=== PATIENT | female | born 1995 ===

== ENCOUNTER 2016-07-09 16:06 | Emergency (ER) | payer SELFPAY ==
[~2016-07-09] VITALS: Ht 157.5 cm; Wt 83.0 kg
--- OUTSIDE RECORDS SUMMARY | 2016-07-09 16:10 | XMS REPORT | Summary of Care ---
Author Author Linda Aguayo M.D. Organization Unknown Address [address], [place] [id number] Phone Unavailable Care Team Providers Care Cheese Wrapper Name Role Phone Sam Aguayo M.D. Unavailable Unavailable Parker Ferraro PP Unavailable Unavailable Unavailable Functional Status Functional Status Health Issues Name Dates Details Functional status health issues are not documented Status: Cognitive Status Health Issues Name Dates Details Cognitive status health issues are not documented Status: Problems Name Dates Details Cellulitis, finger (681.00, L03.019) Status: Active Encounter for routine checking of intrauterine contraceptive device (V25.42, Z30.431) Status: Active Encounter for IUD insertion (V25.11, Z30.430) Status: Active Vaginal Discharge (623.5, N89.8) Status: Active Malpositioned intrauterine device (IUD), initial encounter (996.76, T83.89XA) Status: Active Pelvic pain in female (625.9, R10.2) Status: Active Encounter for gynecological examination with abnormal finding (V72.31, Z01.411 ) Status: Active BV (bacterial vaginosis) (616.10, N76.0) Status: Active Medications Name Dates Details Mirena 20 MCG/24HR Intrauterine Intrauterine Device inserted by physician Quantity: 1 Refills: 0 Linda Aguayo M.D. Started 17-May-2015 Ended 17-May-2020 ActiveMetroNIDAZOLE 0.75 % Vaginal Gel INSERT 1 APPLICATORFUL INTRAVAGINALLY AT BEDTIME NIGHTLY FOR FIVE NIGHTS. Quantity: 1 Refills: 0 Linda Aguayo M.D. Started 18-May-2015 [id number] GM Tube Allergies and Adverse Reactions Name Dates Details No Known Drug Allergies Status: Active Past Medical History Name Dates Details Encounter for gynecological examination with abnormal finding (V72.31, Z01.411 ) Status: Active Malpositioned intrauterine device (IUD), initial encounter (996.76, T83.89XA) Status: Active Vaginal Discharge (623.5, N89.8) Status: Active History of Back Pain Status: Resolved History of Benign neoplasm of skin of scalp (216.4, D23.4) Status: Resolved History of Benign neoplasm of skin of scalp (216.4, D23.4) Status: Resolved History of Large Lump Under The Skin Status: Resolved History of streptococcal pharyngitis (V12.09, Z87.09) Status: Resolved Procedures Procedure Dates Details Procedures not documented Immunization Name Dates Details Gardasil Intramuscular Suspension Lot #: [id number] Administered on:29-Nov-2013 Family History Grandparent Name Dates Details Family history of diabetes mellitus (V18.0, Z83.3) Status: Active Family history of High cholesterol (272.0, E78.0) Status: Active Grandmother Name Dates Details Family history of kidney disease (V18.69, Z84.1) Status: Active Family history of glaucoma (V19.11, Z83.511) Status: Active Family history of tuberculosis (V18.8, Z83.1) Status: Active uncle Name Dates Details Family history of diabetes mellitus (V18.0, Z83.3) Status: Active Family history of glaucoma (V19.11, Z83.511) Status: Active Mother Name Dates Details Family history of diabetes mellitus (V18.0, Z83.3) Status: Active Father Name Dates Details Family history of High cholesterol (272.0, E78.0) Status: Active Social History Name Dates Details Smoking StatusCurrent every day smoker Vital Signs Date Test Result Details 17-May-2015 13:22 BP Systolic 112 mm[Hg] Status: BP Diastolic 60 mm[Hg] Status: Height 62 in Status: Weight 176 lb Status: Body Mass Index Calculated 32.19 kg/m2 Status: Body Surface Area Calculated 1.81 m2 Status: 08-May-2015 16:46 BP Systolic 110 mm[Hg] Status: BP Diastolic 68 mm[Hg] Status: Temperature 98.6 f Status: Heart Rate 90 /min Status: O2 SAT 98 % Status: Results Date Description Value Details 17-May-2015 15:14 CBC w/ Auto Diff 7150 WBC 9.2 K/uL (Better) Range: 4.5-11.0 RBC 4.92 mil/uL (Better) Range: 3.60-5.00 HGB 14.9 g/dL (Better) Range: 12.0-16.0 HCT 45.6 % (Better) Range: 36.0-48.0 MCV 92.6 fL (Better) Range: 80.0-99.0 MCH 30.2 pg (Better) Range: 27.3-32.5 MCHC 32.7 % (Better) Range: 32.0-36.0 RDW 12.4 % (Better) Range: 11.6-14.8 PLATELETS 379 K/uL (Better) Range: 150-400 MPV 7.4 fL (Better) Range: 6.0-11.0 %NEUTRO 64.2 % (Better) Range: 37.0-80.0 %LYMPHS 26.6 % (Better) Range: 13.0-50.0 %MONO 5.3 % (Better) Range: 0.0-12.0 %EOS 1.4 % (Better) Range: 0.0-7.0 %BASO 0.6 % (Better) Range: 0.0-2.5 %TACOS 2.0 % (Better) Range: 0.0-5.0 NEUTRO 5.9 K/uL (Better) Range: 2.0-6.9 LYMPHS 2.5 K/uL (Better) Range: 0.6-3.4 MONOS 0.5 K/uL (Better) Range: 0.0-0.9 EOS 0.1 K/uL (Better) Range: 0.0-0.7 BASO 0.1 K/uL (Better) Range: 0.0-0.2 15:54 ERYTHROCYTE SED RATE 7800 ERYTHROCYTE SED RATE 7 mm/60 min. (Better) Range: 0-20 16:09 OB Dept- Ultrasound Endovag Pelvic Sonogram Comments: Exam Date: 13:37Dictation Date: 05/17/2015 16:09 XOB EV SONO (Better) 17:22 Vaginitis Panel ( Trichomonas, Gardnerella, Scarlet sp.) 5615 T. VAGINALIS PROBE Negative (Better) Range: Negative GARDNERELLA PROBE POSITIVE (Abnormal) Range: Negative SCARLET SP. PROBE Negative (Better) Range: Negative 18-May-2015 14:14 Chlamydia/GC TMA Assay [id number] Comments: [facility] performed at: [facility], [address] [facility], [place], [address], [place] [employer] Lieutenant: Medardo Ferrer D.O., MPHQuest Collection Date/Time: [id number] Results Received Date/Time: [id number] Reported Date/Time: [id number] CHLAMYDIA TRACHOMATIS RNA, TMA NOT DETECTED (Better) Range: NOT DETECTED Comments: [KS]----- NEISSERIA GONORRHOEAE RNA, TMA NOT DETECTED (Better) Range: NOT DETECTED Comments: [KS]----- COMMENT SEE NOTE (Better) Comments: This test was performed using the APTIMA COMBO2 Assay([employer]The analytical performance characteristics of thisassay, when used to test SurePath specimens havebeen determined by [facility].[KS]----- Plan of Care Planned Observations Name Dates Details Planned Goals not documented Goal Planned Encounters Appointment; Provider: Linda Aguayo On 19-May-2016 15:00 Appointment; Provider: Milton Gonzalez On 03-Mar-2008 08:00 Instructions Instructions not documented Encounters Appointment; Linda Aguayo Encounter Diagnosis: Problem not documented On 17-May-2015 13:15 Appointment; Richmond Tobin Encounter Diagnosis: Problem not documented On 08-May-2015 16:45 Appointment; Linda Aguayo Encounter Diagnosis: Problem not documented On 08-Feb-2014 09:30 Appointment; Linda Aguayo Encounter Diagnosis: Problem not documented On 30-Jan-2014 07:00 Appointment; Linda Aguayo Encounter Diagnosis: Problem not documented On 11-Jan-2014 10:15 Appointment; Linda Aguayo Encounter Diagnosis: Problem not documented On 29-Nov-2013 15:00
[2016-07-09] MEDS ORDERED: diphenhydrAMINE 50 MG/ML INJ (BENADRYL) IM ONE (16:40)
[2016-07-09] MEDS ORDERED: PROMETHAZINE 25 MG/ML (PHENERGAN) 1 ML VIAL IM ONE (16:40)
[2016-07-09] MEDS ORDERED: KETOROLAC 30 MG/ML (TORADOL) 1 ML VIAL IM ONE (16:40)
[2016-07-09] MEDS ORDERED: PRM25T PO (18:09)
[2016-07-09 21:15] VITALS: BP 111/67
== END 2016-07-09 18:20 | disposition home or self-care (01) ==
LOC: ED 16:09
DX: R51 Headache (principal); F17.210 Nicotine dependence, cigarettes, uncomplicated
CPT/HCPCS: 96372; 99284; J1200; J1885; J2550; 99283